=== PATIENT | male | born 1980 | race African-American/Black ===

== ENCOUNTER 2018-11-22 09:09 | Inpatient (IN) | payer OTHER ==
[2018-11-22 09:37] VITALS: BMI 27.1
--- NOTE | 2018-11-22 10:41 | HP ---
CIWA Score Nausea/Vomitin-No Nausea/No Vomiting Muscle Tremors: None Anxiety: 4-Mod. Anxious/Guarded Agitation: 4-Moderately Restless Paroxysmal Sweats: No Perspiration Orientation: 2-Disoriented Date<2 days Tacttile Disturbances: 0-None Auditory Disturbances: 0-None Visual Disturbances: 0-None Headache: 0-None Present CIWA-Ar Total Score: 10 - Admission Criteria OASAS Guidelines: Admission for Medically Managed Detox: Requires at least one of the followin. CIWA greater than 12 2. Seizures within the past 24 hours 3. Delirium tremens within the past 24 hours 4. Hallucinations within the past 24 hours 5. Acute intervention needed for co occurring medical disorder 6. Acute intervention needed for co occurring psychiatric disorder 7. Severe withdrawal that cannot be handled at a lower level of care (continued vomiting, continued diarrhea, abnormal vital signs) requiring intravenous medication and/or fluids 8. Admission ROS S - HPI Allergies/Adverse Reactions: Allergies Allergy/AdvReac Type Severity Reaction Status Date / Time No Known Allergies Allergy Verified 11/22/18 09:29 History of Present Illness: pt here requesting detox from etoh use , reports 2 pints/day since " I don't remember " , first age of use 18 , prior detox in [place] in 2018 , latest use yesterday evening , current symptoms as above , starts drinking in the mornings , denies blackouts , + seizures since 2010 , TBI / brain surgery 2 /2 [address] a flight of stairs [facility] , denies falls while intoxicated , denies driving . tobacco : " sometimes " cannabis - daily PMHX ; as above , states took meds this a.m. PSHx : as above PSych : as above , bipolar II , denies SI / HI SHx : lives w/ mother , unemployed , denies legal issues Exam Limitations: Clinical Condition - Ebola screening Have you traveled outside of the country in the last 21 days: No (N) Have you had contact with anyone from an Ebola affected area: No Do you have a fever: No - Review of Systems Constitutional: See HPI EENT: reports: See HPI Respiratory: reports: No Symptoms reported Cardiac: reports: No Symptoms Reported GI: reports: See HPI : reports: No Symptoms Reported Musculoskeletal: reports: No Symptoms Reported Integumentary: reports: No Symptoms Reported Neuro: reports: See HPI, Seizure Endocrine: reports: No Symptoms Reported Psychiatric: reports: Orientated x3, Anxious Patient History - Smoking Cessation Smoking history: Current some day smoker Initiated information on smoking cessation: No - Substances abused Alcohol Substance route: Oral Frequency: Daily Amount used: RUM- 5 PTS Age of first use: 18 Date of last use: 11/21/18 Family Disease History - Family Disease History Family History: Unable to Obtain (pt is poor historian) Admission Physical Exam S - Vital Signs Vital Signs: Vital Signs - 24 hr 11/22/18 09:26 Temperature 97.2 F L Pulse Rate 63 Respiratory 18 Rate Blood Pressure 125/74 - Physical General Appearance: Yes: Mild Distress, Irritable, Anxious, Other (guarded, monosyllabic answers to questions) HEENTM: Yes: EOMI, Hearing grossly Normal, Normocephalic, Normal Voice, Other ( right parietal surgical scar) Respiratory: Yes: Chest Non-Tender, Lungs Clear, Normal Breath Sounds Neck: Yes: No masses,lesions,Nodules, Trachea in good position Cardiology: Yes: Regular Rhythm, Regular Rate, S1, S2 Abdominal: Yes: Non Tender, Soft Back: Yes: Normal Inspection Musculoskeletal: Yes: Gait Steady Extremities: Yes: Non-Tender Neurological: Yes: Alert, Motor Strength 5/5 Integumentary: Yes: Warm, Other (right cheek tattoo) - Diagnostic (1) Alcohol abuse Current Visit: Yes Status: Acute (2) Cannabis use disorder, mild, abuse Current Visit: Yes Status: Acute Breathalyzer - Breathalyzer Breathalyzer: 0 Urine Drug Screen - Test Device Lot number: [id number] Expiration date: 08/15/20 - Control Is test valid?: Yes - Results Drug screen NEGATIVE: No Urine drug screen results: THC-Marijuana Inpatient Rehab Admission - Rehab Decision to Admit Inpatient rehab admission?: No
[2018-11-22] MEDS ORDERED: DICYCLOMINE HCL 10 MG CAPSULE PO PRN (10:48)
[2018-11-22] MEDS ORDERED: IBUPROFEN 400 MG TABLET (FP) PO PRN (10:48)
[2018-11-22] MEDS ORDERED: chlordiazePOXIDE HCL 25 MG CAPSULE PO PRN (10:48)
[2018-11-22] MEDS ORDERED: MENTHOL/PHENOL 1 EACH UD MM PRN (10:48)
[2018-11-22] MEDS ORDERED: MAGNESIUM HYDROX 2400MG/30ML ORAL SUSPENSION 30 ML CUP PO PRN (10:48)
[2018-11-22] MEDS ORDERED: MELATONIN 5 MG TABLETS PO PRN (10:48)
[2018-11-22] MEDS ORDERED: ACETAMINOPHEN 325 MG TABLET (FP) PO PRN ×2 (10:48)
[2018-11-22] MEDS ORDERED: MAGNESIUM CITRATE 300 ML BOTTLE PO PRN (10:48)
[2018-11-22] MEDS ORDERED: hydrOXYzine PAMOATE 25 MG CAPSULE (FP) PO PRN (10:48)
[2018-11-22] MEDS ORDERED: MAG HYDROX/AL HYDROX/SIMETH 30 ML UNIT-DOSE CUP PO PRN (10:48)
[2018-11-22] MEDS: chlordiazePOXIDE HCL 25 MG CAPSULE PO SCH ×2 (13:29→17:58)
[2018-11-22] MEDS: THIAMINE HCL 100 MG TABLET (FP) PO SCH (22:41)
[2018-11-22] MEDS: levETIRAcetam 500 MG TABLET (FP) PO SCH (22:41)
[2018-11-22] MEDS: DIVALPROEX SODIUM 500 MG TABLET E.C. PO SCH (22:41)
[2018-11-23] MEDS: chlordiazePOXIDE HCL 25 MG CAPSULE PO SCH ×4 (00:05→18:10)
[2018-11-23 10:06] LABS: HEMATOCRIT 43.5 % (35.4-49); HEMOGLOBIN 13.9 GM/dL (11.7-16.9); MCHC 31.8 g/dl (32.0-35.9); MEAN CELL VOLUME 91.2 fl (80-96); MEAN PLT VOLUME 10.5 fl (7.5-11.1); PLATELET COUNT 179 K/MM3 (134-434); RBC 4.77 M/mm3 (4.00-5.60); RDW 15.4 % (11.9-15.9); WHITE BLOOD COUNT 4.7 K/mm3 (4.0-10.0)
--- NOTE | 2018-11-23 10:08 | PN ---
S CIWA - CIWA Score Nausea/Vomitin Muscle Tremors: 2 Anxiety: 2 Agitation: 2 Paroxysmal Sweats: 1-Minimal Palms Moist Orientation: 0-Oriented Tacttile Disturbances: 1-Very Mild Itch/Numbness Auditory Disturbances: 1-Very Mild Visual Disturbances: 0-None Headache: 2-Mild CIWA-Ar Total Score: 13 BHS Progress Note (SOAP) Subjective: alert,irritable,anxious,interrupted sleep,tremor Objective: 11/23/18 10:06 alert,irritable,anxious,interrupted sleep,tremor 11/23/18 10:07 Vital Signs Temperature 97.2 F L 11/23/18 09:48 Pulse Rate 62 11/23/18 09:48 Respiratory Rate 18 11/23/18 09:48 Blood Pressure 155/64 11/23/18 09:48 O2 Sat by Pulse Oximetry (%) 11/23/18 10:07 Laboratory Last Values WBC 4.7 K/mm3 (4.0-10.0) 11/23/18 07:00 RBC 4.77 M/mm3 (4.00-5.60) 11/23/18 07:00 Hgb 13.9 GM/dL (11.7-16.9) 11/23/18 07:00 Hct 43.5 % (35.4-49) 11/23/18 07:00 MCV 91.2 fl (80-96) 11/23/18 07:00 MCH 29.0 pg (25.7-33.7) 11/23/18 07:00 MCHC 31.8 g/dl (32.0-35.9) L 11/23/18 07:00 RDW 15.4 % (11.9-15.9) 11/23/18 07:00 Plt Count 179 K/MM3 (134-434) 11/23/18 07:00 MPV 10.5 fl (7.5-11.1) 11/23/18 07:00 labs pending Assessment: 11/23/18 10:07 withdrawal symptom Plan: continue detox
[2018-11-23 10:14] LABS: ALBUMIN 3.2 g/dl (3.4-5.0); BILIRUBIN,TOTAL 0.6 mg/dL (0.2-1); CALCIUM 8.8 mg/dL (8.5-10.1); CREATININE 0.9 mg/dL (0.55-1.3); TOT PROT 6.8 g/dl (6.4-8.2)
[2018-11-23] MEDS: DIVALPROEX SODIUM 500 MG TABLET E.C. PO SCH ×2 (10:20→22:46)
[2018-11-23] MEDS: levETIRAcetam 500 MG TABLET (FP) PO SCH ×2 (10:20→22:47)
[2018-11-23] MEDS: PRENATAL VITAMINS W/ FOLIC ACID TABLET (FP) PO SCH (10:20)
--- NOTE | 2018-11-23 15:18 | PN ---
B[facility] Progress Note Note: Patient did not want to be seen by sheet writer
[2018-11-24] MEDS: chlordiazePOXIDE HCL 25 MG CAPSULE PO SCH ×2 (00:11→06:24)
[2018-11-24] MEDS: THIAMINE HCL 100 MG TABLET (FP) PO SCH ×2 (00:11→21:44)
[2018-11-24] MEDS: chlordiazePOXIDE HCL 10 MG CAPSULE PO SCH ×3 (10:39→22:01)
[2018-11-24] MEDS: PRENATAL VITAMINS W/ FOLIC ACID TABLET (FP) PO SCH (10:39)
[2018-11-24] MEDS: levETIRAcetam 500 MG TABLET (FP) PO SCH ×2 (10:39→21:44)
[2018-11-24] MEDS: DIVALPROEX SODIUM 500 MG TABLET E.C. PO SCH ×2 (10:39→21:45)
[2018-11-24] MEDS ORDERED: chlordiazePOXIDE HCL 10 MG CAPSULE PO PRN (11:00)
--- NOTE | 2018-11-24 11:10 | PN ---
S CIWA - CIWA Score Nausea/Vomitin-No Nausea/No Vomiting Muscle Tremors: 2 Anxiety: 2 Agitation: 0-Normal Activity Paroxysmal Sweats: 3 Orientation: 0-Oriented Tacttile Disturbances: 0-None Auditory Disturbances: 0-None Visual Disturbances: 0-None Headache: 2-Mild CIWA-Ar Total Score: 9 BHS Progress Note (SOAP) Subjective: c/o irritability,anxiety,interrupted sleep, and tremor. Objective: 11/24/18 11:08 Vital Signs 11/24/18 11/24/18 11/24/18 03:30 08:04 09:52 Temperature 97.9 F 97.5 F L Pulse Rate 49 L 54 L Respiratory 18 18 18 Rate Blood Pressure 105/49 L 104/50 L Assessment: 11/24/18 11:09 AOX3, in no distress Ambulating in the unit. Withdrawal symptoms. 11/24/18 11:09 Plan: continue detox.
[2018-11-25] MEDS: chlordiazePOXIDE HCL 10 MG CAPSULE PO SCH ×2 (10:18→22:07)
[2018-11-25] MEDS: levETIRAcetam 500 MG TABLET (FP) PO SCH ×2 (10:18→22:04)
[2018-11-25] MEDS: DIVALPROEX SODIUM 500 MG TABLET E.C. PO SCH ×2 (10:18→22:05)
[2018-11-25] MEDS: PRENATAL VITAMINS W/ FOLIC ACID TABLET (FP) PO SCH (10:18)
--- NOTE | 2018-11-25 16:04 | PN ---
S CIWA - CIWA Score Nausea/Vomitin-No Nausea/No Vomiting Muscle Tremors: 2 Anxiety: 1-Mildly Anxious Agitation: 1-Slight > Activity Paroxysmal Sweats: 2 Orientation: 0-Oriented Tacttile Disturbances: 0-None Auditory Disturbances: 0-None Visual Disturbances: 0-None Headache: 0-None Present CIWA-Ar Total Score: 6 BHS Progress Note (SOAP) Subjective: Headache Objective: 11/25/18 16:03 Laboratory Tests 11/23/18 11/23/18 11/23/18 07:00 07:00 07:00 WBC 4.7 RBC 4.77 Hgb 13.9 Hct 43.5 MCV 91.2 MCH 29.0 MCHC 31.8 L RDW 15.4 Plt Count 179 MPV 10.5 Sodium 139 Potassium 4.0 Chloride 102 Carbon Dioxide 30 Anion Gap 6 L BUN 16 Creatinine 0.9 Est GFR (CKD-EPI)AfAm 126.02 Est GFR (CKD-EPI)NonAf 108.73 Random Glucose 87 Calcium 8.8 Total Bilirubin 0.6 AST 11 L ALT 17 Alkaline Phosphatase 58 Total Protein 6.8 Albumin 3.2 L RPR Titer Nonreactive Labs reviewed Assessment: 11/25/18 16:04 Withdrawal symptoms Plan: Continue detox Encouraged PO water intake
[2018-11-25] MEDS: THIAMINE HCL 100 MG TABLET (FP) PO SCH (22:05)
[2018-11-26 09:05] VITALS: BP 104/54; PULSE 58; TEMP 97.2
[2018-11-26] MEDS: PRENATAL VITAMINS W/ FOLIC ACID TABLET (FP) PO SCH (10:13)
[2018-11-26] MEDS: levETIRAcetam 500 MG TABLET (FP) PO SCH (10:13)
[2018-11-26] MEDS: DIVALPROEX SODIUM 500 MG TABLET E.C. PO SCH (10:13)
[2018-11-26] MEDS: chlordiazePOXIDE HCL 10 MG CAPSULE PO SCH (10:14)
--- NOTE | 2018-11-26 17:06 | DS ---
[facility] Detox Discharge Summary Admission Date: 11/22/18 Discharge Date: 11/26/18 - History Present History: Alcohol Dependence, Cannabis Dependence Additional Comments: NO BEDS ARE CURRENTLY AVAILABLE AT [facility] ([place], [place]) , PATIENT WILL RETURN TO [facility] ([place], [place]), WHERE HE HAS PREVIOUSLY BEEN A CLIENT, FOR THE TIME BEING, THEN WILL APPLY FOR ADMISSION TO [facility] IN THE NEAR FUTURE. PRESCRIPTION FOR DEPAKOTE SENT TO [facility] ([place], [place]) FOR AFTERCARE FOR PATIENT. 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 PATIENT ADVISED TO FOLLOW-UP WITH [employer] [employer] WHEN POSSIBLE AFTER DISCHARGE FROM DETOX UNIT FOR GENERAL MEDICAL ASSESSMENT AND FOR HISTORY OF SEIZURES. PATIENT VERBALIZED UNDERSTANDING OF RECOMMENDATION. PATIENT WAS DISCHARGED FROM DETOX UNIT IN STABLE MEDICAL CONDITION. Pertinent Past History: History Of Seizures (Due To Traumatic Brain Injury), Bipolar Disorder. - Physical Exam Results Vital Signs: Vital Signs Temperature 97.2 F L 11/26/18 09:05 Pulse Rate 58 L 11/26/18 09:05 Respiratory Rate 18 11/26/18 09:05 Blood Pressure 104/54 L 11/26/18 09:05 O2 Sat by Pulse Oximetry (%) Pertinent Admission Physical Exam Findings: WITHDRAWAL SYMPTOMS. Laboratory Tests 11/23/18 11/23/18 11/23/18 07:00 07:00 07:00 WBC 4.7 RBC 4.77 Hgb 13.9 Hct 43.5 MCV 91.2 MCH 29.0 MCHC 31.8 L RDW 15.4 Plt Count 179 MPV 10.5 Sodium 139 Potassium 4.0 Chloride 102 Carbon Dioxide 30 Anion Gap 6 L BUN 16 Creatinine 0.9 Est GFR (CKD-EPI)AfAm 126.02 Est GFR (CKD-EPI)NonAf 108.73 Random Glucose 87 Calcium 8.8 Total Bilirubin 0.6 AST 11 L ALT 17 Alkaline Phosphatase 58 Total Protein 6.8 Albumin 3.2 L RPR Titer Nonreactive LABS NOTED. - Treatment Hospital Course: Detox Protocol Followed, Detoxed Safely, Responded well, Discharged Condition Good Patient has Accepted a Rehab Referral to: PT. RETURNING TO [facility] ([place] WILL APPLY TO [facility] IN NEAR FUTURE - Medication Discharge Medications: Ambulatory Orders levETIRAcetam [Keppra -] 1,500 mg PO BID 11/22/18 Divalproex [Depakote -] 500 mg PO BID 30 Days #60 tablet.ec 11/26/18 - Diagnosis (1) Alcohol abuse Status: Acute (2) Cannabis use disorder, mild, abuse Status: Acute - AMA Did Patient Leave Against Medical Advice: No
== END 2018-11-26 11:45 | disposition home or self-care (01) | DRG 775 ==
LOC: YASAS 09:09 → Y6N 11:58
PROVIDERS: ADMIT Surgery; ATTEND Surgery
PROC: HZ2ZZZZ Detoxification Services for Substance Abuse Treatment (ICD-10-PCS; principal; 2018-11-22)
DX: F10.230 Alcohol dependence with withdrawal, uncomplicated (principal); F12.10 Cannabis abuse, uncomplicated
CPT/HCPCS: 36415; 80053; 85027; 86593